=== PATIENT | male | born 1990 | race Caucasian/White ===

== ENCOUNTER 2024-04-18 20:33 | Emergency (ER) | payer SELFPAY ==
[~2024-04-18] VITALS: Ht 180.3 cm; Wt 142.0 kg
[2024-04-18 21:10] VITALS: O2SAT 96
[2024-04-18] MEDS ORDERED: CYCL5TAB MT (22:49)
[2024-04-18 23:45] VITALS: BP 154/104; PULSE 114; RESP 18; TEMP 98.4
[2024-04-18] MEDS: ACETAMINOPHEN 325MG TABLET PO ONE (23:45)
[2024-04-18] MEDS: IBUPROFEN 400MG TABLET PO ONE (23:45)
== END 2024-04-18 23:46 | disposition home or self-care (01) ==
LOC: ER 20:33
DX: S16.1XXA Strain of muscle, fascia and tendon at neck level, initial encounter (principal); S39.012A Strain of muscle, fascia and tendon of lower back, initial encounter; V49.9XXA Car occupant (driver) (passenger) injured in unspecified traffic accident, initial encounter; Y93.89 Activity, other specified; Y92.89 Other specified places as the place of occurrence of the external cause; Y99.8 Other external cause status
CPT/HCPCS: 99283